=== PATIENT | male | born 1995 | race Caucasian/White ===

== ENCOUNTER 2017-10-23 14:02 | Emergency (ER) | payer BC ==
[2017-10-23] MEDS ORDERED: 0.9 % SODIUM CHLORIDE 1,000 ML IV ONE ×2 (14:06→15:04)
[2017-10-23] MEDS: 0.9 % SODIUM CHLORIDE 1,000 ML IV SCH ×2 (14:06→15:05)
--- NOTE | 2017-10-23 14:21 | ED Physician Documentation ---
General Adult - HISTORIAN Historian: patient - HPI Stated Complaint: Muscle Cramping Chief Complaint: General Adult Additional Information: While scrimmaging he developed leanne full body cramp . Has been Onset: hours Timing: still present - ROS CONST: chills. denies: fever - PAST HX Past History: none Allergies/Adverse Reactions: Allergies Allergy/AdvReac Type Severity Reaction Status Date / Time No Known Allergies Allergy Unverified 10/23/17 14:18 Home Medications: Ambulatory Orders Medication Instructions Recorded Clindamycin Phos/Benzoyl Perox 25 gm TP 10/23/17 [Clindamycin-Benzoyl Perox 1-5%] - SOCIAL HX Smoking History: non-smoker Alcohol Use: none Drug Use: none - FAMILY HX Family History: No - VITAL SIGNS Vital Signs: Vital Signs Temp Pulse Resp BP Pulse Ox 98.1 F 88 26 H 139/78 99 10/23/17 14:02 10/23/17 14:02 10/23/17 14:02 10/23/17 14:02 10/23/17 14:02 ED Results Lab/Radiology - Orders Orders: ED Orders Category Date Time Status 0.9 % Sodium Chloride [Normal Saline] 1,000 ml Med 10/23/17 14:06 Discontinued IV .STK-MED General Adult Physical Exam - PHYSICAL EXAM GENERAL APPEARANCE: mild distress EENT: eye inspection normal, ENT inspection normal, pharynx normal. No: no signs of dehydration (mildly dry), pharyngeal erythema NECK: normal inspection, thyroid normal, supple RESPIRATORY: no resp distress, chest non-tender, breath sounds normal. No: wheezes, rales, rhonchi CVS: reg rate & rhythm, heart sounds normal, equal pulses, no murmur, no gallop ABDOMEN: soft, no organomegaly, normal bowel sounds, no abdominal bruit, no distension, non-tender SKIN: warm/dry, normal color EXTREMITIES: non-tender, normal range of motion, no evidence of injury, no edema NEURO: oriented X3, CN's nml as tested, motor nml, sensation nml, mood/affect nml, cognition normal Discharge Clincal Impression: Muscle cramps, Dehydration Referrals: Primary Doctor,No [Primary Care Provider] - 2 Days Additional Instructions: Drink a lot of fluid. Stop the protein supplement at this time. To see the team physician next week to discuss your lab tests and to consider repeating lab tests. Condition: Stable Disposition: 01 HOME, SELF-CARE Decision to Admit: NO Date of Decison to Admit: 10/23/17 Decision Time: 15:06
[2017-10-23 14:33] LABS: BASOPHILS % 0.3 (0.0-1.5); MEAN CORPUSCULAR HEMOGLOBIN 30.8 pg (28.0-34.0); MEAN CORPUSCULAR VOLUME 89.3 fl (80.0-100.0); MONOCYTES % 3.9 % (0.0-11.0); NEUTROPHILS # 15.9 # k/uL (1.4-7.7)
[2017-10-23 14:57] LABS: eGFR (African) 49; eGFR (Non-African) 41
[2017-10-23 15:49] VITALS: BP 120/68
[2017-10-24 07:52] LABS: APPEARANCE,URINE CLOUDY (CLEAR); COLOR,URINE YELLOW (YELLOW); OCCULT BLOOD,URINE 1+ (NEGATIVE); UROBILINOGEN URINE 0.2 Eu (0.2-1.0)
== END 2017-10-23 15:48 | disposition home or self-care (01) ==
LOC: ED 14:02
DX: E86.0 Dehydration (principal); R25.2 Cramp and spasm
CPT/HCPCS: 80053; 81002; 82550; 85025; J7030; 96360; 96361; S1016